=== PATIENT | male | born 1980 | race Hispanic/Latino ===

== ENCOUNTER 2020-04-29 09:57 | Outpatient (CLI) | payer OTHER ==
--- NOTE | 2020-04-29 11:21 | ULT ---
Exam: Bilateral renal ultrasound HISTORY: Chronic kidney disease COMPARISON: None FINDINGS: Right kidney: Normal cortical echotexture. No hydronephrosis. Right kidney is diminutive. There is re nal cortical thinning. Right kidney measurements: 8.4 x 4.5 x 3.9 cm. Left kidney: Normal cortical echotexture. No hydronephrosis. Left kidney is diminutive. There is deanna l cortical thinning. Left kidney measurements 11.9 x 5.6 x 5.9 cm. Urinary bladder: Limited distention. 52 mL volume. IMPRESSION: No hydronephrosis.
[2020-04-29 14:45] LABS: Anion Gap 13 mmol/L (10-20); BUN (Urea Nitrogen) 21 mg/dL (8.9-20.6); Calc. Creatinine Clearance 0 mL/min (70-130); Calcium 8.9 mg/dL (7.8-10.44); Carbon Dioxide 24 mmol/L (22-29); Chloride 105 mmol/L (98-107); Estimated GFR-MDRD 21; Glucose 99 mg/dL (70-105); Magnesium 2.2 mg/dL (1.6-2.6); Sodium 138 mmol/L (136-145)
== END 2020-04-29 09:58 | disposition home or self-care (01) ==
LOC: SCSULT 09:57
PROVIDERS: ATTEND Internal Medicine Geriatric Medicine
DX: I12.9 Hypertensive chronic kidney disease with stage 1 through stage 4 chronic kidney disease, or unspecified chronic kidney disease (principal); N18.3 Chronic kidney disease, stage 3 (moderate); E87.6 Hypokalemia
CPT/HCPCS: 36415; 76770; 80048; 83735